=== PATIENT | male | born 1975 | race Caucasian/White ===

== ENCOUNTER 2016-10-20 13:35 | Emergency (ER) | payer BC ==
[~2016-10-20] VITALS: Ht 175.3 cm; Wt 90.5 kg
[2016-10-20 13:36] VITALS: BP 122/77; PULSE 67; RESP 16; TEMP 97.8; O2SAT 97
--- NOTE | 2016-10-20 13:44 | PD ---
Physical Exam Time Seen by Provider: 13:43 Narrative 40 y/o male with L leg pain from wrestling today. Vital signs reviewed. Seen at triage desk. Awaiting bed placement. Data Data Last Documented VS Vital Signs Date Time Temp Pulse Resp B/P Pulse Ox O2 Delivery O2 Flow Rate FiO2 10/20/16 13:36 97.8 67 16 122/77 97 Room Air MDM Medical Record Reviewed: Yes Supervised Visit with JUJU: Jenaro Samano Oct 20, 2016 13:44
--- NOTE | 2016-10-20 14:01 | PD ---
HPI Chief Complaint: Injury Time Seen by Provider: 14:01 Travel History International Travel<30 days: No Contact w/Intl Traveler<30days: No Traveled to known affect area: No History of Present Illness HPI 40-year-old male presents to the emergency Department with complaint of left knee pain to the medial aspect since this morning after "wrenching" it while wrestling. Has not been able to ambulate or bear weight on the affected extremity. Denies fever, vomiting. Denies paresthesias, loss of sensation to the affected extremity. Reports decreased range of motion of the knee. Has not taken any medications or tried any treatments to alleviate his symptoms. Pain is aggravated with movement and palpation. No known allergies. Has no medical complaints. No other modifying factors or associated signs and symptoms. PFSH Social History Tobacco Use: No Allergies-Medications (Allergen,Severity, Reaction): Coded Allergies: No Known Allergies (Unverified , 10/20/16) Reported Meds & Prescriptions Reported Meds & Active Scripts Active Ibuprofen 800 Mg Tab 800 Mg PO Q6HR PRN Review of Systems Except as stated in HPI: all other systems reviewed are Neg Physical Exam Narrative GENERAL: Well-nourished, well-developed male patient, in no acute distress; afebrile, nontoxic-appearing SKIN: Warm and dry. HEAD: Atraumatic. Normocephalic. EYES: Pupils equal and round. No scleral icterus. No injection or drainage. ENT: Mucosa pink and moist. Airway patent. NECK: Trachea midline. CARDIOVASCULAR: Regular rate. RESPIRATORY: No accessory muscle use. GASTROINTESTINAL: Rounded. MUSCULOSKELETAL: Left knee nonedematous, nonerythematous, and without ecchymosis ; full range of motion and flexion to 90; point tenderness to the medial aspect ; joint stable with negative drawer test; no obvious deformity. The left Lower extremity is supple and non-tense with 2+ pedal pulse and sensory intact and without erythema or edema. No obvious deformity. No edema. NEUROLOGICAL: Awake and alert. Oriented 3. No obvious cranial nerve deficits. Motor grossly within normal limits. Normal speech. PSYCHIATRIC: Appropriate mood and affect; insight and judgment normal. Data Data Last Documented VS Vital Signs Date Time Temp Pulse Resp B/P Pulse Ox O2 Delivery O2 Flow Rate FiO2 10/20/16 13:36 97.8 67 16 122/77 97 Room Air Orders Knee, Complete (4vws) (10/20/16 14:01) Ice/Cold Pack (10/20/16 14:01) Crutches (10/20/16 14:01) Ibuprofen (Motrin) (10/20/16 14:15) Canvas Knee Splint (Cks) (10/20/16 ) MDM Medical Decision Making Medical Screen Exam Complete: Yes Emergency Medical Condition: Yes Medical Record Reviewed: Yes Differential Diagnosis Knee strain, ligament tear, meniscus tear, knee fracture Narrative Course 40-year-old male with left knee injury Left lower extremity is supple and non- tense a 2+ pedal pulse and sensory intact. Ice, ibuprofen, left knee x-ray ordered. 1503: Left knee x-ray with no acute findings. Canvas knee splint and crutches provided for support; patient refused knee splint and crutches. Ibuprofen prescribed for home. Instructed patient to follow up with orthopedic. Instructed patient to follow up with primary care provider. Patient verbalizes understanding and agreement with treatment plan. Patient is medically cleared and stable for discharge. Discussed reasons to return to the emergency department. Patient agrees with treatment plan. The patients vital signs are stable and the patient is stable for outpatient follow-up and treatment. Patient discharged home, stable and in no acute distress. Diagnosis Primary Impression: Left knee injury Qualified Code: S89.92XA - Left knee injury, initial encounter Referrals: Orthopaedic Surgeon Primary Care Physician Patient Instructions: Crutch Instructions (ED), General Instructions, Knee Sprain (ED) Departure Forms: Tests/Procedures, Work Release Special Instructions: Unable to return to work until cleared by primary care provider or orthopedic Additional Instructions: Tylenol or ibuprofen as needed and as directed to reduce pain and inflammation Rest, ice, compress, and elevate extremity to decrease pain and inflammation Knee brace for support Crutches for support Avoid aggravating activity; increase activity as tolerated Follow-up with primary care provider Follow-up with orthopedics Return to the emergency department immediately with worsening symptoms Med/Other Pt SpecificInfo: Prescription(s) given Scripts Ibuprofen 800 Mg [id number] Mg PO Q6HR PRN (PAIN) #30 TAB Ref 0 Prov:Nancy Choi 10/20/16 Disposition: DISCHARGE HOME Condition: Stable Nancy Choi Oct 20, 2016 14:01
[2016-10-20] MEDS ORDERED: IBUPROFEN 800 MG TAB PO ONE (14:15)
--- NOTE | 2016-10-20 14:59 | RADRPT ---
EXAM DATE/TIME: 10/20/2016 14:24 [facility] COMPARISON: No previous studies available for comparison. INDICATIONS : Lateral left knee pain. Falling/twisting injury. MEDICAL HISTORY : None. SURGICAL HISTORY : None. ENCOUNTER: Initial ACUITY: 1 day PAIN SCORE: 9/10 LOCATION: Left lateral knee FINDINGS: Four view examination of the left knee demonstrates no evidence of fracture or dislocation. Bony min eralization is normal. The articular surfaces are intact. The suprapatellar soft tissues have a nor mal configuration. CONCLUSION: 1. No acute fracture or dislocation. Surya Joy MD on October 20, 2016 at 14:56 Board Certified Radiologist. This report was verified electronically.
[2016-10-20] MEDS ORDERED: IBUP800T23 PO (15:02)
== END 2016-10-20 15:47 | disposition home or self-care (01) ==
LOC: NEPK 13:35
DX: S89.92XA Unspecified injury of left lower leg, initial encounter (principal); Y93.72 Activity, wrestling
CPT/HCPCS: 73564; 99283; E0113; L1830